=== PATIENT | male | born 1980 | race Asian ===

== ENCOUNTER 2024-03-31 18:46 | Inpatient (IN) | payer OTHER, SELFPAY ==
[2024-03-31] VITALS (43 sets, daily range): BP systolic 132–199; BP diastolic 93–150; BMI 29.8
--- NOTE | 2024-03-31 16:19 | ED.GENMED ---
Addendum entered and electronically signed by Ash Beckford PA-C 04/01/24 07:12:
Please note: Case consultation with neurology at 1745 via phone, Dr Brambila. Discussed presenting symptoms, new onset L visual field hemianopia. Questioned regarding need for CTA, neurology did not feel this was prudent as isolated visual field
deficit is likely a posterior circulation stroke, lack of other neuro symptoms would make MCA distribution LVO unlikely, NIH of 2 not an IAT candidate. Reasonable to proceed with CT head alone and purse MR angiography while in hospital.
Original Note:
History of Present Illness
<Ash Beckford PA-C - Last Filed: 03/31/24 18:29>
General
Chief Complaint: Breathing Problem
Time Seen by Provider: 03/31/24 16:10
History of Present Illness
History of Present Illness:
43-year-old male with history of uncontrolled hypertension presents to the emergency department for evaluation of shortness of breath ongoing for the past 5 or 6 days. States he first noticed feeling somewhat winded while bowling on Tuesday which
would be atypical for him. On Tuesday he felt as though he could not take a 'satisfying breath' and this is gradually worsened for the past several days. No chest pain, leg swelling or fevers. He is a smoker, denies ETOH. No hx of CAD or heart
arrhythmias
Review of Systems
<Ash Beckford PA-C - Last Filed: 03/31/24 18:29>
Review of Systems
Allergies reviewed?: Yes
All Other Systems: ROS reviewed and negative except as documented in HPI and ROS
Phy Exam
<LIZ Cao Last Filed: 03/31/24 18:29>
Physical Exam
Physical Exam:
GEN: Well appearing, NAD, WDWN
Eyes: PERRLA, EOMs intact, no scleral icterus
HENT: NCAT, oral mucosa moist
Lungs: CTAB, no wheezes, rales, rhonchi, normal chest wall excursion
Cardiac: Tachycardic and irregular, no murmur
Abdomen: S, NT, ND, NABS, no masses or hepatosplenomegaly
Neuro: AO x 3
MSK: No gross deformity or ecchymosis. No edema. No digital clubbing
Skin: No rashes, petechiae. Normal color, no pallor or jaundice.
Psych: Calm, cooperative, proper hygiene
Course
<Ash Beckford PA-C - Last Filed: 03/31/24 18:29>
Orders/Labs/Results
Orders:
Orders
03/31/24 15:46
Electrocardiogram (*1) Urgent
Reason for Study: Shortness of Breath
03/31/24 15:47
EKG- Treatment ONCE
03/31/24 16:18
CR Chest - 2 Views Urgent
Comment:
Reason For Exam: SOB
03/31/24 16:19
Diltiazem HCl [Cardizem] 20 mg IV NOW STA
03/31/24 16:30
Diltiazem 125 mg/125 ml Nss [Cardizem] 125 mg in 125 ml IV PER PROTOCOL
Initial dose in mg/hr, then titrate:: 5
Titrate to keep:: Heart rate 80-100 bpm
Titrate by mg/hr:: 5 mg/hr
Frequency of titrations (minutes):: 15
Maximum dose in mg/hr:: 15
03/31/24 16:51
CMP [Comprehensive Metabolic Panel] Urgent
Complete Blood Count/With Diff Urgent
Magnesium Urgent
03/31/24 17:16
NT-proBNP Urgent
Troponin I Urgent
03/31/24 17:27
Diltiazem HCl [Cardizem] 30 mg IV NOW STA
03/31/24 17:36
CT Head W/o Cont STROKE ALERT Urgent
Reason For Exam: acute onset L visual field deficit
03/31/24 18:02
Labetalol HCl [Trandate] 10 mg IV NOW STA
Tenecteplase [Tnkase] 25 mg Syringe [Syringe Non-Pump] 0 ml IV NOW
Provider explained risk/benefits to patient &/or caregiver?: Yes
Comment: HOLD FOR BP >180/100
Blood pressure: 160/124
03/31/24 18:19
Admit Patient As Directed
Co-Sign Provider:
Level of Care: Inpatient admission
Assign to:: ICU
Physician / Group: Zeferino Mcdaniel
Diagnosis: CVA s/p TNK
Reason for Hospitalization: CVA s/p TNK
Expected length of stay greater than two midnights?: Yes
ELOS- Estimated Length of Stay in days: 3
I certify the patient meets the requirements for IP care: Yes
03/31/24 18:20
Sequential Compression Device [Pneumatic Compression Sleeves] As Directed
Type: Knee high
DX Deep Vein Thrombosis Video Routine
Abnormal Lab Results
03/31/24 03/31/24
16:51 17:16
MPV 10.8 H fL
(7.4-10.4)
Absolute Neuts (auto) 6.6 H 10^3/uL
(1.4-6.5)
Absolute Monos (auto) 0.7 H 10^3/uL
(0.1-0.6)
Lymphocytes % 17.0 L %
(20.5-51.1)
Glucose 112 H mg/dl
(70-99)
Total Bilirubin 1.8 H mg/dl
(0.2-1.3)
ALT 63 H U/L
(0-50)
Troponin I 0.039 H* ng/ml
03/31/24 16:51
03/31/24 16:51
Vital Signs
Initial and Last Documented VS:
Initial Vital Signs
Temp Pulse Resp BP Pulse Ox
98.1 F 73 16 196/145 96
03/31/24 15:41 03/31/24 15:41 03/31/24 15:41 03/31/24 15:41 03/31/24 15:41
Last Documented Vital Signs
Temp Pulse Resp BP Pulse Ox
98.1 F 81 17 133/95 92
03/31/24 15:41 03/31/24 18:20 03/31/24 18:20 03/31/24 18:20 03/31/24 18:15
<Adi Mendoza, DO - Last Filed: 03/31/24 18:14>
Orders/Labs/Results
Orders:
Orders
03/31/24 15:46
Electrocardiogram (*1) Urgent
Reason for Study: Shortness of Breath
03/31/24 15:47
EKG- Treatment ONCE
03/31/24 16:18
CR Chest - 2 Views Urgent
Comment:
Reason For Exam: SOB
03/31/24 16:19
Diltiazem HCl [Cardizem] 20 mg IV NOW STA
03/31/24 16:30
Diltiazem 125 mg/125 ml Nss [Cardizem] 125 mg in 125 ml IV PER PROTOCOL
Initial dose in mg/hr, then titrate:: 5
Titrate to keep:: Heart rate 80-100 bpm
Titrate by mg/hr:: 5 mg/hr
Frequency of titrations (minutes):: 15
Maximum dose in mg/hr:: 15
03/31/24 16:51
CMP [Comprehensive Metabolic Panel] Urgent
Complete Blood Count/With Diff Urgent
Magnesium Urgent
03/31/24 17:16
NT-proBNP Urgent
Troponin I Urgent
03/31/24 17:27
Diltiazem HCl [Cardizem] 30 mg IV NOW STA
03/31/24 17:36
CT Head W/o Cont STROKE ALERT Urgent
Reason For Exam: acute onset L visual field deficit
03/31/24 18:02
Labetalol HCl [Trandate] 10 mg IV NOW STA
Tenecteplase [Tnkase] 25 mg Syringe [Syringe Non-Pump] 0 ml IV NOW
Provider explained risk/benefits to patient &/or caregiver?: Yes
Comment: HOLD FOR BP >180/100
Blood pressure: 160/124
03/31/24 18:19
Admit Patient As Directed
Co-Sign Provider:
Level of Care: Inpatient admission
Assign to:: ICU
Physician / Group: Zeferino Mcdaniel
Diagnosis: CVA s/p TNK
Reason for Hospitalization: CVA s/p TNK
Expected length of stay greater than two midnights?: Yes
ELOS- Estimated Length of Stay in days: 3
I certify the patient meets the requirements for IP care: Yes
03/31/24 18:20
Sequential Compression Device [Pneumatic Compression Sleeves] As Directed
Type: Knee high
DX Deep Vein Thrombosis Video Routine
Abnormal Lab Results
03/31/24 03/31/24
16:51 17:16
MPV 10.8 H fL
(7.4-10.4)
Absolute Neuts (auto) 6.6 H 10^3/uL
(1.4-6.5)
Absolute Monos (auto) 0.7 H 10^3/uL
(0.1-0.6)
Lymphocytes % 17.0 L %
(20.5-51.1)
Glucose 112 H mg/dl
(70-99)
Total Bilirubin 1.8 H mg/dl
(0.2-1.3)
ALT 63 H U/L
(0-50)
Troponin I 0.039 H* ng/ml
03/31/24 16:51
03/31/24 16:51
Vital Signs
Initial and Last Documented VS:
Initial Vital Signs
Temp Pulse Resp BP Pulse Ox
98.1 F 73 16 196/145 96
03/31/24 15:41 03/31/24 15:41 03/31/24 15:41 03/31/24 15:41 03/31/24 15:41
Last Documented Vital Signs
Temp Pulse Resp BP Pulse Ox
98.1 F 81 17 133/95 92
03/31/24 15:41 03/31/24 18:20 03/31/24 18:20 03/31/24 18:20 03/31/24 18:15
<Ash Beckford PA-C - Last Filed: 03/31/24 18:29>
MDM/Problems Addressed
MDM/Problems Addressed:
43-year-old male presenting with shortness of breath particular with exertion, found to be in new onset rapid atrial flutter. After initial lab evaluation and discussion of IV rate controlling medications, the patient began to report
lightheadedness as an abrupt onset of visual field deficit. This began at approximately 1715 assessment and discussion with attending physician Dr. Mendoza, the decision was made to proceed with a stroke alert. After discussion of symptoms with
neurology and review of initial head CT, I held a lengthy discussion with the patient and his family at the bedside regarding thrombolytic therapy. Although his NIH score surface would not meet criteria this is clearly a disabling deficit given his
complete loss of temporal visual field on the left and nasal visual field on the right. I discussed the patient the risk of thrombolytics including hemorrhaging and worsening neurologic function and the need for strict blood pressure control and
after discussion of risk and benefit the patient consents to proceed with thrombolytic therapy. After this discussion the patient remained moderately hypertensive and his diltiazem was maxed at 15 mg infusion and a dose of 10 mg of labetalol was
given, subsequent blood pressure readings x 2 were below 150/100 and at this time TNK was given. Patient being admitted to the intensive care unit medicine service for further ration and management. Endorses rapid atrial flutter his rate was
controlled on high-dose IV diltiazem, he does have EKG changes suggestive of LVH and a clinical presentation plus chest x-ray concerning for mild new onset congestive heart failure
<Ash Beckford PA-C - Last Filed: 03/31/24 18:29>
Comment
Comment:
Initial EKG independently interpreted by me shows a atrial fibrillation at a rate of [address]ressions and T wave inversions likely indicative of LVH
<Adi Mendoza DO - Last Filed: 03/31/24 18:14>
*Critical Care Note
Total Time (30-74mins, 75-104mins- exclusive of procedures): 35
comment:
Critical care statement: A total of 35 minutes of critical care time was provided for this patient. This includes management of unstable vital signs, evaluation of the patient at bedside, reviewing the patient's pertinent medical records, discussion
with consultants, review of old EKGs and review of pertinent medical records. This time with separate from time utilized to perform the aforementioned documented procedures
<Ash Beckford PA-C - Last Filed: 03/31/24 18:29>
Update Note
Update Note:
1715: Pt notes lightheadedness and 'blurry vision'. On further assessment, this appears to be a hemianopia particularly of the left lateral visual field
1738: Pt assessed by attending physician Dr Mendoza. Will proceed with stroke alert at this time
ED Attending Note
<Ash Beckford PA-C - Last Filed: 03/31/24 18:29>
-
Portions of this chart may have been created with voice recognition software.� Occasional wrong word or��sound alike� substitutions may have occurred due to the inherent limitations of voice recognition software.
<Adi Mendoza DO - Last Filed: 03/31/24 18:14>
ED Attending Note
Patient seen and examined by attending physician: Yes
ED Attending Note:
I have reviewed and agree with history and treatment plan by Lawrence Beckford. My exam revealed
Physical Exam
General: Hypertensive
Neck: supple. no meningeal signs. normal posterior pharynx
Heart: s1/s2 tachycardia, irregular rhythm, no murmur. equal radial
pulses.
HEENT: Pupils equal round reactive to light, EOMI
Lungs: no acute respiratory distress. clear bilaterally
Abdomen: normal bowel sounds. not tender. no CVAT
Neuro: alert and oriented. no focal neurological deficits cranial nerves II through XII intact, except left field hemianopsia
Skin: no rash
Psychiatric: well kept. interactive and cooperative
Extremities: no edema. no calf tenderness. negative homans. good distal pulses
43-year-old male with acute CVA, left visual field hemianopsia, began at 5 PM. TNK ordered. Admit to ICU.
Discharge Plan
Departure
Patient Disposition: Admit
Date of Disposition: 03/31/24
Time of Disposition: 18:13
Admit to: ICU
Presentation/result/management discussed w/ accepting MD/DO: Hospitalist
Patient with high blood pressure during this ER visit?: Yes
Condition: Fair
Discharge Problem:
Acute cerebrovascular accident (CVA), Atrial fibrillation with RVR
Prescriptions:
No Action
carvedilol 12.5 mg Tablet
12.5 mg PO BID
lisinopril 40 mg Tablet
40 mg PO DAILY
Referrals:
Eben Bradley DO [Family Provider] -
Interventions
Interventions:
*General Assessment Last Done: 03/31/24 17:57
*ED COVID-19 Vaccine History Last Done: 03/31/24 17:57
Discharge Date and Time
Print Language: KYRGYZ
[2024-03-31 17:08] LABS: % Basophils 0.2 % (0-2); % Eosinophils 0.5 % (0-6); % Immature Granulocytes 0.2 % (0-0.5); % Monocytes 7.3 % (1.7-9.3); % Neutrophils 74.8 % (42.2-75.2); Absolute Lymphocytes 1.5 10^3/uL (1.2-3.4); Absolute Monocytes 0.7 10^3/uL (0.1-0.6); Absolute Neutrophils 6.6 10^3/uL (1.4-6.5); Hematocrit 39.9 % (39.0-52.0); Mean Corp Hgb Conc. 35.1 g/dL (33.0-37.0); Mean Corpuscular Hgb 28.3 pg (27.0-31.0); Mean Corpuscular Volume 80.6 fL (80.0-94.0); Mean Platelet Volume 10.8 fL (7.4-10.4); Nucleated Red Blood Cells % 0 % (-); Platelet Count 225 10^3/uL (130-400); Red Blood Cell Count 4.95 10^6/uL (4.70-6.10); Red Cell Dist. Width 12.9 % (11.5-14.5); White Blood Cell Count 8.9 10^3/uL (4.8-10.8)
[2024-03-31] MEDS: CARDIZEM 20 MG IV (17:18)
[2024-03-31 17:23] LABS: ALT (SGPT) 63 U/L (0-50); AST (SGOT) 41 U/L (17-59); Albumin 4.2 g/dl (3.5-5.0); Alkaline Phosphatase 77 U/L (38-126); Blood Urea Nitrogen 20 mg/dl (9-20); Carbon Dioxide 22 mmol/L (22-30); Chloride 106 mmol/L (98-107); Glucose 112 mg/dl (70-99); Potassium 3.9 mmol/L (3.5-5.1); Sodium 139 mmol/L (135-145); Total Bilirubin 1.8 mg/dl (0.2-1.3); Total Protein 6.8 g/dl (6.3-8.2); eGFR > 60.00
[2024-03-31] MEDS: CARDIZEM 125 IV (17:30)
[2024-03-31] MEDS: CARDIZEM 30 MG IV (17:35)
--- NOTE | 2024-03-31 17:46 | PHANOTE ---
Med Rec Note:
Unable to confirm pt's medications with Dr Reid, pt states has not taken his medications in a long time, but took them today before coming in.
[2024-03-31 17:58] LABS: NT-proBNP 1580 pg/ml; Troponin I 0.039 ng/ml
[2024-03-31] MEDS: TRANDATE 10 MG IV ×2 (18:08→19:14)
[2024-03-31] MEDS: TNKASE 5 MG IV (18:19)
--- NOTE | 2024-03-31 18:58 | HPS.HSE ---
Family Physician
-
Family Physician: Eben Bradley, DO
Chief Complaint
-
sob
History of Present Illness
43 male history of uncontrolled hypertension presenting with shortness of breath that has been ongoing x 5 to 6 days. States worse when he was bowling and felt like his heart was racing. Now running as his shortness of breath continued to worsen.
While in the ED he was found to be in atrial fibrillation with RVR started on a Cardizem drip. While in the ED he then developed right lateral eye visual defects with blurring of the vision/complete loss of vision on the lateral side. CT brain
with no acute intracranial abnormalities. NIH is score reported to me of 2. At the time of my evaluation TNK was being provided. Blood pressure was in the 130s.
Medical History
Past Medical History
Past Medical History: Reports HTN
Past Surgical History: Reports None
Social History
Tobacco: Smoker (0.5 pack daily )
Alcohol: None
Drug: Marijuana
Family History
Family History: Diabetes
Allergies / Home Medications
Allergies reflects when Allergies were last updated in [facility].
Home Medications with original date entered in [facility]
nkda reported
Allergy/Medication List:
No known drug allergy
Review of Systems
-
A 12 point ROS was completed and negative except as noted: Yes
Physical Exam
Vital Signs
Vital Signs
Temp Pulse Resp BP Pulse Ox
98.1 F 82 16 139/104 92
03/31/24 15:41 03/31/24 18:35 03/31/24 18:35 03/31/24 18:35 03/31/24 18:15
Physical Exam
General: Well Developed and Well Nourished
HEENT: NormoCephalic, Anicteric, Moist mucous membranes, PERRLA, No Ptosis and Other (Right temporal upper/lower quadrant visual defects, wearing corrective lenses neck)
Respiratory: Clear
Cardiac: S1/S2 and Irregular Rhythm
Breast: Deferred by me
GI: Soft, Non Tender, Non Distended and Normal Bowel Sounds
Rectal: Deferred by Provider
Genito-urinary: Deferred by me
Musculoskeletal: No Clubbing and No Cyanosis
Skin: Warm
Neuro: Awake, Alert, Oriented, AO x 3, No Motor Deficits (5/5 motor strength in bilateral upper and lower extremities), Nonfocal/grossly intact, Cranial Nerves Intact and No Sensory Deficits
Laboratory Results
-
03/31/24 16:51
Laboratory Results
Total Bilirubin 1.8 mg/dl (0.2-1.3) H 03/31/24 16:51
AST 41 U/L (17-59) 03/31/24 16:51
ALT 63 U/L (0-50) H 03/31/24 16:51
Alkaline Phosphatase 77 U/L (38-126) 03/31/24 16:51
Troponin I 0.039 ng/ml H* 03/31/24 17:16
Glucose 112
Data Reviewed
-
Critical Care Time (in minutes): 82m
CT Scan: Report Reviewed by me and Discussed with Patient
Medical Tests (Nuc Med, Echo, EKG etc): Report Reviewed by me and Discussed with Patient
Lab Data: Labs Reviewed by me and Discussed with Family
Impression/Plan
-
Acute CVA s/p TNK
- Unfortunately no CT angio brain was completed prior to TNK administration for which I believe that this should have been as this could be cardioembolic
� Stroke protocol
� MRI brain and MRA head and neck
� 2D echocardiogram with bubble study
� Target normotensive
� Neurology consult
� A1c lipid profile ordered
� Start aspirin 24 hours post TNK administration
� Start high intensity statin
� Bedrest for the first 24-hour to prevent falls if standing may start fall precautions
� PT OT
Atrial fibrillation RVR confirmed on EKG
� Started on Cardizem drip by ED
� 2D echocardiogram assess valves and EF
� Consult cardiology
� Monitor on telemetry
Hypertension
-At home on lisinopril carvedilol. Hold. On Cardizem drip at this time
DVT prophylaxis s/p TNK, start SCDs
ICU
--- NOTE | 2024-03-31 19:30 | PTCARENOTE ---
pt adm to ICU from ER, aaox3, NIH 2 for L sided visual loss, see full documentation on work list. B/L IV intact- cardizem gtt infusing per work list. POC discussed, care ongoing.
[2024-03-31] MEDS: LIPITOR 40 MG PO (22:22)
[2024-04-01] VITALS (79 sets, daily range): BP systolic 82–185; BP diastolic 71–125; BMI 29.8
--- NOTE | 2024-04-01 01:20 | PTCARENOTE ---
pt c/o slight weakness in R hand, states it feels how it does 'when you fall asleep and wake up and it feels funny', denies numbness or tingling,
+ normal sensation; on assessment pt able to grasp hand but R thumb and pointer finger slightly weaker- other 3 fingers strong. no further changes in neuro check. discussed with Paulie, no action at this time--continue neuro checks as ordered.
--- NOTE | 2024-04-01 01:50 | PTCARENOTE ---
R thumb and R pointer finger continue to be noticeably weaker than rest of hand- noted as new symptom in neuro flowsheet, no drift in RUE noted, assessment otherwise remains the same.
--- NOTE | 2024-04-01 05:00 | PTCARENOTE ---
R hand strength improved t/o shift, L sided vision deficit resolved. no further changes.
[2024-04-01 06:10] LABS: INR 1.13; PT 14.5 Sec (11.4-14.6)
[2024-04-01 06:11] LABS: APTT 33.9 Sec (23.4-35.0)
[2024-04-01 06:24] LABS: Blood Urea Nitrogen 17 mg/dl (9-20); Calcium 8.8 mg/dl (8.4-10.2); Carbon Dioxide 22 mmol/L (22-30); Chloride 105 mmol/L (98-107); Estimated Creatinine Clearance > 125 ml/min; Glucose 96 mg/dl (70-99); HDL Cholesterol 38 mg/dl; LDL Cholesterol, Calculated 73 mg/dl; Potassium 3.6 mmol/L (3.5-5.1); Sodium 136 mmol/L (135-145); Total Cholesterol 132 mg/dl (50-199); Triglyceride 105 mg/dl (10-149); Very Low Density Lipoprotein 21 mg/dl (0-30); eGFR > 60.00
--- NOTE | 2024-04-01 07:06 | CON.INTV ---
Consultation
Consultation Request
Date/Time Consultation Requested: 03/31
Date/Time Consultation Performed: 04/01
Reason for Consultation: Critical care
Medical History
-
History of Present Illness:
History obtained from the patient, reviewing chart. Patient is a 43-year-old male whose history dates back to about 1 week ago when he developed increased shortness of breath, especially while bowling. He described palpitations. For this reason
he brought himself into [facility] where he was found to be afebrile, pulse 73, breathing at 16, blood pressure 196/145, 96% saturation. Patient was initially treated with IV diltiazem for atrial fibrillation with rapid ventricular response
and labetalol for hypertension. Patient developed new onset left visual field hemianopsia. NIH 2. Patient had CT of the head which was unremarkable, was administered TNK at approximately 1802. Patient admitted to ICU for acute stroke.
Presently, patient is feeling well. He has a mild posterior headache although he feels that this is from being hungry. Denies any vision changes, nausea, chest pain, shortness of breath at this time.
Patient also notes that he does not have insurance and he has been trying to get insurance
.
PMH: Hypertension, cardiomyopathy per radio survey worker in [facility], sleep apnea failed CPAP therapy
Past Medical History
Past Medical History: None
Past Surgical History: None (See above)
Social History
Tobacco: Smoker (43-[id number]-tced history, continues to smoke half a pack a day)
Alcohol: Occasional
Drug: None
Personal:
Living: With Family
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
Environmental Exposures: Born and raised in [place], has been in the states for 10 months
Family History
Family History: Other (2 daughters healthy. There is a family history of diabetes.)
Allergies / Home Medications
Allergies
Allergy/AdvReac Type Severity Reaction Status Date / Time
No Known Allergies Allergy Unverified 03/31/24 15:39
Home Medications
�Medication �Instructions �Recorded �Confirmed �Last Taken �Type
carvedilol 12.5 mg tablet 12.5 mg PO BID 03/31/24 03/31/24 History
lisinopril 40 mg tablet 40 mg PO DAILY 03/31/24 03/31/24 History
Review of Systems
-
All other systems: Negative unless noted
Vitals / Labs / Diagnostic Testing
Vital Signs
Temp Pulse Resp BP Pulse Ox
98.6 F 74 16 151/100 97
04/01/24 03:12 04/01/24 06:30 04/01/24 06:30 04/01/24 06:20 04/01/24 06:30
Lab Data
03/31/24 16:51
04/01/24 05:23
Laboratory Results
04/01/24
05:23
PT 14.5
INR 1.13
APTT 33.9
Diagnostic Testing:
Physical Exam
-
HEENT: Normocephalic and Anicteric
Cardiovascular: S1/S2, Regular Rhythm, Murmur (/6 systolic murmur) and Peripheral Edema (n)
Respiratory: Wheeze (n), Rales (n), Rhonchi (n) and Non-Labored Respirations
GI: Soft, Non Distended and Non Tender
Neurology: Awake, Alert, Oriented and No Motor Deficits (Cranial nerves nonfocal. )
Skin: Good Color
General: Comfortable
Assessment
-
43-year-old male with history of hypertension, cardiomyopathy (diagnosed by cardiology at [facility]), sleep apnea failed CPAP therapy, presents with subjective dyspnea, atrial fibrillation, found to have visual field defect status post TNK at
approximately 6 PM 03/31. We are asked to help from critical care standpoint
Acute stroke
Visual field defect in the ED
s/p TNK 6 PM on 03/31
Atrial fibrillation with rapid ventricular response
Cardizem drip initiated
History of cardiomyopathy
Diagnosed by [id number] at [facility]
Not on antihypertensive therapy
History of sleep apnea, failed CPAP therapy
2013
Hypertension
[id number]-levl history of smoking, ongoing
Family history of diabetes
Plan/recommendations
At this time, patient is critically ill but stable. Visual field defect has resolved.
Patient is without any complaints at this time
He describes subjective dyspnea for 1 week, likely secondary to atrial fibrillation
Cardioembolic cause for his visual field defect is likely
He does have a mild posterior headache but this is minimal, states he gets this when he is hungry
Moving forward
Cranial nerves intact at this time, neurological exam nonfocal
Await follow-up imaging per neurology
Tachycardia has improved. Now in sinus rhythm
Nonspecific T wave changes noted
Echocardiogram pending, cardiology has been consulted
Patient sees his [id number] Panchito, who is a radio survey worker (unofficially)
He was told he had a thickened heart wall
Patient did require Cardene intermittently
Labetalol as needed also noted
Follow blood pressures, maintain systolic 140-1 80
Antiplatelet therapy pending repeat imaging
Discussed at length risks and ramifications of untreated sleep disordered breathing
Given patient comorbidities, he should revisit this
Head of bed elevated for now
Consider revisiting HST and CPAP therapy. This can be done as an outpatient
Blood glucose normal. A1c pending
Also reviewed at length importance of tobacco cessation. His also smokes. He is committed to stopping smoking. Reviewed behavioral changes.
Reviewed with patient, at bedside
Reviewed with critical care nursing
TCCT 31 min
--- NOTE | 2024-04-01 08:00 | PTCARENOTE ---
the pt was received from previous retail shift manager RN, the pt is resting in stretcher in the lowest position, side rails up x2, call loza within reach, HOB elevated, the pts is currently at the pts bedside, no s/s of distress currently, the pt is
AAO, able to answer questions appropriately and able to move all extremities, pupils equal 3 and brisk, NIH and neurological checks being completed post TNK per protocol, deficits have resolved, the pt is currently still on bed rest post TNK, the pt
is currently in NSR in the 70's, palpable pulses, no edema present, no c/o chest pain, the pt is currently on RA Sp02 97%, CTA, no cough, no c/o SOB, the pt is on 2L NC while asleep, the pt is currently on a cholesterol lowering diet, no c/o N/V/D,
bowel sounds present in all four quadrants, the pt is voiding in urinal, the pt stated to this RN, 'I feel like i might have to poop at some point today', this RN educated the pt on bed rest orders for the pt at this time and the pt is receptive to
this, the pt has no skin issues, PIV's have positive blood return and are flushed and patent, trending Troponins, bleeding precautions in place, will continue to monitor the pt closely
--- NOTE | 2024-04-01 08:58 | CON.NEURO ---
Neuro Assessment/Plan
Assessment
IMPRESSIONS/RECOMMENDATIONS:
Abrupt change in vision
Most likely due to acute ischemic stroke which in turn is secondary to atrial fibrillation with onset of symptoms at approximately 1750 hrs.
Plan
Patient received tenecteplase appropriately to remediate likely clot producing symptoms
Check MRI of brain as planned to discern severity of damage
Check MRA head and neck for completeness
Provide anticoagulation beginning 24 hours after tenecteplase provision as prescribed by cardiology
Not clear patient would benefit from use of atorvastatin
Will continue to follow patient. Thank you.
Consultation
Order
Date of Consultation: 04/01/24
Requesting Provider: Hospitalists
Reason for Consult: Visual loss
Subjective/Objective
Subjective Data
Date of Service: April 01, 2024
Right-Handed
Patient presented to this hospital's emergency department with acute onset shortness of breath which had been ongoing for the prior 5 days according to medical records. At approximately 1730 hrs., the patient began experiencing sudden onset of loss
of vision on left-side after presentation. Loss has subsequently improved by 90%. No associated symptoms except for posterior pressure. No known modifying factors. No prior events.
Patient received Tenecteplase (TNK). The patient was subsequently transferred to the intensive care unit for further evaluation and treatment.
Objective Data
Vital Signs
Temp Pulse Resp BP Pulse Ox
36.4 C 74 16 151/100 97
04/01/24 08:03 04/01/24 06:30 04/01/24 06:30 04/01/24 06:20 04/01/24 06:30
Lab Results
03/31/24 16:51
04/01/24 05:23
PT 14.5 Sec (11.4-14.6) 04/01/24 05:23
INR 1.13 04/01/24 05:23
APTT 33.9 Sec (23.4-35.0) 04/01/24 05:23
Sodium 136 mmol/L (135-145) 04/01/24 05:23
Potassium 3.6 mmol/L (3.5-5.1) 04/01/24 05:23
BUN 17 mg/dl (9-20) 04/01/24 05:23
Glucose 96 mg/dl (70-99) 04/01/24 05:23
Calcium 8.8 mg/dl (8.4-10.2) 04/01/24 05:23
Bup-N-Rrctkrdjjbc Pept 1580 pg/ml 03/31/24 17:16
LDL Cholesterol, Calc 73 mg/dl 04/01/24 05:23
Patient Allergies
No Known Allergies Allergy (Unverified 03/31/24 15:39)
CVA Assessment
Onset of Stroke Symptoms
Onset of symptoms known: Yes
Date of onset of symptoms: 03/31/24
Time of onset of symptoms: 17:30
Time pt last seen normal is known: Yes
Date last time pt seen normal: 03/31/24
Time last time pt seen normal: 17:30
NIH Stroke Score
Level of Consciousness: 0 - Alert
LOC Questions: 0-Answers both correctly
LOC Commands: 0-Performs both correctly
Best Horizontal Gaze: 0-Normal
Visual Butler: 0=Normal, no visual loss
Facial Palsy: 0=Normal, symmetrical
Motor - Right Arm: 0=No drift 10 seconds
Motor - Left Arm: 0=No drift 10 seconds
Motor - Right Le-No drift 5 seconds
Motor - Left Le-No drift 5 seconds
Limb Ataxia: 0-Absent
Sensation: 0-Normal
Best Language: 0-No aphasia
Dysarthria: 0-Normal
Extinction and Inattention: 0-No abnormality
Total Score:: 0
Tenecteplase Contraindications
Inclusion and Exclusion criteria reviewed: Yes
IAT Contraindications: NIHSS < 6
Review of Systems
-
History Source: Patient and Family
All other systems: Reviewed and negative
EENT: Decreased Vision; Negative Swallowing Difficulty
Respiratory: Negative Trouble Breathing
Cardiac: Negative Chest Pain
Abdomen/GI: Negative Incontinence of Stool
Genitourinary: Negative Incontinence
Musculoskeletal: Negative Back Pain or Neck Pain
Neuro: Headache (posterior pressure at time of symptom); Negative Dizzy
Physical Exam
-
General: No Apparent Distress and Appears Stated Age
Eyes: OU Absent Papilledema, Round OU, [place] Conjunctivae and No Ptosis
HEENT: Anicteric and Moist Mucous Membranes
Neck: Full Range of Motion
Respiratory: No Dyspnea
Cardiac: No JVD
GI: Non-distended
Skin: Unremarkable
Extremities: No Clubbing, No Cyanosis and No Edema
Psych: Intact Judgement/Insight
Extended Neurological Exam
Mood & Affect: Mood Unremarkable and Affect Unremarkable
Attention Span & Concentration: Awake, Alert, Interactive and No Difficulty with 2 Step Request
Memory: Unremarkable
Tremor: Hand Tremor Absent and Head Tremor Absent
Speech: Quality Unremarkable and Quantity Unremarkable
Cranial Nerve II: Left Eye: Pupillary Reactivity Unremarkable, Pupillary Size Unremarkable and Visual Butler Intact
Cranial Nerve II: Right Eye: Pupillary Reactivity Unremarkable, Pupillary Size Unremarkable and Visual Butler Intact
Cranial Nerves III, IV, : Extraocular Movement: Extraocular Movement Full in all Directions
Cranial Nerve VII: Facial Symmetry: Normal Facial Symmetry
Cranial Nerve VIII: Hearing: Unremarkable Hearing to Normal Conversational Volume
Cranial Nerves IX, X: Palate Movement: Palate Elevation Symmetric
Cranial Nerve XI: Shoulder Shrug: Unremarkable
Cranial Nerve XII: Tongue Protusion: Midline
Muscle Strength, Overall: Full Throughout
Muscle Bulk & Tone: Bulk Unremarkable and Tone Unremarkable
Pronator Drift: No Drift in Upper Extremities
Deep Tendon Reflexes: Unremarkable Throughout
Touch Sensation: Unremarkable
Coordination: Tpkpon-uany-igeytz Testing Unremarkable
Babinski Sign: Absent Bilaterally
Data Reviewed
-
CT Head: Report Reviewed
MRI Head: Pending
MRA Head: Pending
MRA Neck: Pending
Labs: Report Reviewed
Reviewed with: Physician and Patient
Old Records: Summarized
Medications
-
Active Medications
Generic Name Dose Route Start Last Admin
Trade Name Freq PRN Reason Stop Dose Admin
Acetaminophen 650 mg 03/31/24 18:38
Acetaminophen 325 Mg Tablet PO 04/28/24 18:37
Q4HPRN PRN
KILPATRICK, mild pain, or temp >100.4F
Atorvastatin Calcium 40 mg 04/01/24 18:00
Atorvastatin (Lipitor) 40 Mg Tablet PO 04/29/24 17:59
QPM FRANCISCO J
Diltiazem HCl 125 mg in 125 mls @ 0 mls/hr 03/31/24 16:30 03/31/24 17:30
Cardizem IV 125 mls
PER PROTOCOL FRANCISCO J Administration
Protocol
Per Protocol
Nicardipine/Sodium Chloride 40 mg in 200 mls @ 0 mls/hr 03/31/24 20:30
Cardene IV
PER PROTOCOL FRANCISCO J
Protocol
Per Protocol
Sodium Chloride 0 flush 03/31/24 23:00
Sodium Chloride 0.9% (Flush) Syringe IV 04/28/24 22:59
PER PROTOCOL FRANCISCO J
Home Medications
�Medication �Instructions �Recorded
carvedilol 12.5 mg tablet 12.5 mg PO BID Blood Pressure 03/31/24
lisinopril 40 mg tablet 40 mg PO DAILY Blood Pressure 03/31/24
Past History
Past History
ED Past Medical History: HTN
ED Past Surgical History: None
Social History
Tobacco: Smoker
Alcohol: None
Drug: Marijuana
Personal:
Living: with family
Family History
Family History: Other (Reviewed and noncontributory)
[2024-04-01 09:33] LABS: Glycohemoglobin (HgbA1c) 5.6 % (4.0-5.6)
[2024-04-01 09:38] LABS: NT-proBNP 766 pg/ml
--- NOTE | 2024-04-01 09:52 | CON.CAR ---
Addendum entered and electronically signed by Tian Garza MD 04/01/24 14:34:
I saw and examined the patient.
The WOOL PULLER's note was reviewed and I agree with the note.
Comment:
Imp/Suggestion
Presented with LEA, likely acute decompensated HFrEF, perhaps first time with HF symptoms
- Meds for HFrEF should help his severe untreated HTN
- HF education
Newly found PAF
- Control or HTN, HF
- Add Eliquis when OK with neurology
- In future can consider more than just a BB for his AFib, ablation will be future option
New TIA vs aborted CVA, likely cardioembolic
Chronic cardiomyopathy, his cousin (a hot air furnace installer repairer) performed an echo and Dx cardiomyopathy 'years ago'
- Echo here confirms what a cardiomyopathy
Elevated troponin
- Likely a nonischemic myocardial injury form rapid AF, HF, and acute neurologic event, cannot rule out type II MO from AFib embolus or from rapid AFib
- I prefer an elective ischemic evaluation as an outpatient given his acute neurologic event
- Given troponin I favor statin
HTN, severe, chronic, untreated
Medical non-adherence
Social determinant of health: he lacks insurance
Original Note:
Consultation
Consultation Request
Date/Time Consultation Requested: 03/31/2024, 18:38 PM
Date/Time Consultation Performed: 04/01/2024, 7:45 AM
Requesting Provider: Zeferino Warren
Performing Provider: Chayito Lares for Tian Valdez
Reason for Consultation: Severe HTN, Afib
Medical History
-
Chief Complaint: Shortness of breath and fatigue
History of Present Illness:
43-year-old male with significant PMHx for hypertension presents to the hospital with sudden onset SOB that is gradually worsening for 6 days. Patient reports that his symptoms initially started on Tuesday when he went for balling with a friend for
3 hours however he felt extremely fatigued and could not push through Bowling beyond 1 and half hours. He was so tired, his friend has to drop him home. After going home he noticed mild shortness of breath and sweating that gradually worsened with
strenuous activity. He states it is a sensation of not being able to take full breaths but is not associated with any sort of chest pain or pressure, jaw pain, upper back pain, left or right arm pain. He gradually noticed that he could not swim
with his kids and his sensation of fatigue and not being able to take full breaths were sent from about three fourth to just 20% the day before he came to emergency room. On the day of presentation he felt that he could not breathe more than 10%
which prompted ER visit. He admits to have difficulty sleeping and had to find a comfortable position to sleep but did not notice any PND. Denies having palpitations, chest pain, nausea or vomitings, dizziness, lightheadedness, isolated weakness,
syncopal or near syncopal episodes. He never had similar episodes in the past.
Upon arrival to the emergency room patient was found to have A-fib with RVR and was initiated Cardizem drip. While in the ED he reported to have right lateral thigh visual defects with blurring of vision and complete loss of vision on the lateral
side which resolved in the a.m. today. NIH score 2 stroke protocol initiated patient received TNK therapy and CT brain revealed no acute intracranial abnormalities.
Of note he was diagnosed with hypertension in 2008, was prescribed lisinopril and was also prescribed carvedilol by his primary care but he was never compliant with medications. He also reports to have had workup and established diagnosis of
hypertrophic cardiomyopathy about 2 years ago by his cousin who is a hot air furnace installer repairer.
Past Medical History
Past Medical History: Other (Hypertension, marijuana use.)
Past Surgical History: Other (None)
Social History
Tobacco: Smoker (0.5 pack/day for 15 years)
Alcohol: None
Drug: Marijuana (Smokes marijuana, once or twice a day.)
Personal:
Living: With Family
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
Family History
Family History: Diabetes (Strong history of diabetes in paternal and maternal family.)
Allergies / Home Medications
Allergy/AdvReac Type Severity Reaction Status Date / Time
No Known Allergies Allergy Unverified 03/31/24 15:39
�Medication �Instructions �Recorded �Confirmed �Type
carvedilol 12.5 mg tablet 12.5 mg PO BID Blood Pressure 03/31/24 History
lisinopril 40 mg tablet 40 mg PO DAILY Blood Pressure 03/31/24 History
Review of Systems
-
History Source: Patient
Constitutional: Fatigue
EENT: No Symptoms
Respiratory: Trouble Breathing
Cardiac: Diaphoresis
Abdomen/GI: No Symptoms
: No Symptoms
Musculoskeletal: No Symptoms
Neurological: No Symptoms
Endocrine: No Symptoms
Hematologic/Lymphatic: No Symptoms
Physical Exam
Vital Signs
Temp Pulse Resp BP Pulse Ox
97.6 F 85 19 147/95 97
04/01/24 08:03 04/01/24 09:30 04/01/24 09:30 04/01/24 09:00 04/01/24 09:30
Lab Results
03/31/24 16:51
04/01/24 05:23
Troponin I 1.720 ng/ml H* D 04/01/24 05:23
Fxa-O-Uimsawxcshx Pept 766 pg/ml 04/01/24 05:23
Physical Exam
General: Comfortable
HEENT: Moist Mucous Membranes
Respiratory: Clear; Negative Wheezes, Crackles or Rhonchi
Cardiac: S1/S2, Regular Rhythm and Other (S4 present); Negative Murmur, Rub, JVD or HJR
GI: Soft, Non Tender, Non Distended and Normal Bowel Sounds
Musculoskeletal: No Edema
Neuro: AO x 3
Impression / Plan
-
Background-
Mr. Rehman is a 43-year-old male with PMHx significant for hypertension, noncompliant with medications presents to the emergency room with shortness of breath, diaphoresis and fatigue x 6 days. Was found to have A-fib with RVR, and a subsequent TIA in
the emergency room. Cardiology consulted for A-fib and cardiomegaly on chest x-ray.
Impression -
Dyspnea -
- Secondary to HFrEF-EF at 40% with global hypokinesis and grade 3 diastolic dysfunction.
- History of established diagnosis of hypertrophic cardiomyopathy, not on any medications.
- Suspect hypertensive cardiomyopathy. Wonder if there is some ischemic component to it as well.
- Medical management with beta-blockers, and ARB's.
Acute onset TIA-CVA
- Suspect secondary to A-fib, resolution of symptoms in 4 to 5 hours with tenecteplase.
- Will resume Eliquis when safe to do so from neurological standpoint.
A-fib with RVR-
- Rhythm: switch to oral diltiazem. Currently in NSR
- [id number] score-4, recommend Eliquis 5 mg twice daily.
- Recommend rate control with carvedilol.
Elevated troponins-
- Can be secondary to A-fib and HCOM, type II demand ischemia.
- Questionable NSTEMI, ST segment elevations in V2 V3 with T wave inversions from V3 to V6
-May need left heart catheterization electively.
- Repeat serial EKGs,
Severe systemic hypertension-
Home medications lisinopril and carvedilol, noncompliant.
Recommend optimal medical management and tight blood pressure control.
Subjective -
feels well today.
Data reviewed -
Telemetry-average heart rate-80s, NSR
EKG-03/31/2024-A-fib with RVR, early repolarization changes in ST segments
EKG-04/01/2024-NSR, left atrial enlargement, LVH, ST segment elevation in V2, V3, T wave inversions in V3-V6
Troponins-0.4, 1.7 1 PM troponins pending
proBNP 04/01/2024-720.
CT head-no acute intracranial abnormalities, MRI pending.
Chest e-mpd-lqxydbccptck with mild pulmonary vascular congestion.
2D echo-04/01/2024-LVEF 40%, HFrEF, global hypokinesis, grade 3 diastolic dysfunction, PASP-52 mmHg.
Data Reviewed
-
EKG: Tracing Personally Visualized and interpreted
Radiology: Image Personally Visualized and interpreted
CT Scan: Image Personally Visualized and interpreted
Medical Tests (Nuc Med, Echo etc): Image Personally Visualized and interpreted
Labs: Labs Reviewed by me
--- NOTE | 2024-04-01 10:40 | PTOTSP ---
Speech Language Pathology
Pt seen for speech/language evaluation. Deferred swallow evaluation as pt passed RN dysphagia screen and reported no difficulty with meals. No dysarthria or dysphonia noted. Language evaluated via the Quick Aphasia Battery (QAB), form 1. Pt with
an overall score of 10.00 (WNL). No aphasia noted.
Further ELEVATOR EXAMINER services not indicated. Please reconsult as warranted.
--- NOTE | 2024-04-01 10:55 | PTCARENOTE ---
the pt pressed the call loza and this RN entered the pts room, the pt stated to this RN, 'May i please get up i feel fine, i don't feel weak, i just really have to poop and i don't think that i can do it in the [facility] i have never done that before and
it's embarrasing', this RN tiger texted Dr. Brambila and asked for Dr. Amezquita permission to get the pt OOB to the bedside commode so that the pt could have a bowel movement, this RN assisted the pt out of bed with no issues, no c/o dizziness/light
headedness, no s/s of bleeding present, pt is sitting on commode with this RN at the pts bedside
--- NOTE | 2024-04-01 11:05 | PTCARENOTE ---
the pt finished having a bowel movement and this RN assisted the pt from the commode to the bed with no issues, the pt is resting in stretcher in the lowest position, side rails up x2, call loza within reach, HOB elevated, no s/s of distress, there
were no s/s of blood in the pts stool, VS WNL, the pts is currently still at the pts bedside, will continue to monitor the pt closely
[2024-04-01] MEDS: COREG 12.5 MG PO ×2 (11:38→19:39)
[2024-04-01] MEDS: ALDACTONE 25 MG PO (11:38)
[2024-04-01] MEDS: LASIX 20 MG PO (11:38)
[2024-04-01] MEDS: CARDENE 200 IV (11:49)
--- NOTE | 2024-04-01 11:53 | PTCARENOTE ---
this RN noted that the pts blood pressure was 161/125, this RN notified the provider and started Cardene at 2.5mg/hour, will continue to monitor the pt closely
--- NOTE | 2024-04-01 11:59 | CM ---
CM following re: discharge planning.
Reviewed pt's chart, met with t and pt's spouse at bedside.
Pt is a 43 year old male, admitted with primary dx of SOB.
Pt reports he was born in [place], immigrated to [facility] [facility] with family at the age of 10 months, resides with spouse and 4 children in a 2SH, 2 steps to enter. 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
PCP: Eben Bradley
Pharmacy: [facility] [place]
D/C plan: home with anticipated no needs. Spouse to transport at discharge.
CM will follow with discharge plan updates as hospitalization progresses
--- NOTE | 2024-04-01 12:19 | PTCARENOTE ---
this RN notified the provider of the pts continuously elevated Troponin at 2.130, will continue to monitor the pt closely
[2024-04-01] MEDS: ENTRESTO 24 MG/26 MG 1 TAB PO ×2 (12:24→19:40)
--- NOTE | 2024-04-01 13:10 | PTCARENOTE ---
the pt is resting in stretcher in the lowest position, side rails up x2, call loza within reach, HOB elevated, no s/s of distress, no c/o chest pain, no c/o SOB, VS WNL, most recent blood pressure is 139/92 (104), Cardene gtt currently running at
2.5mg/hour, the pts is currently still at the pts bedside, no s/s of bleeding noted, no complaints offered at this time, no change from previous assessment, will continue to monitor the pt closely
--- NOTE | 2024-04-01 13:51 | W.PN.HOSP.TC ---
Addendum entered and electronically signed by Zeferino Mcdaniel MD 04/01/24 14:04:
subjective
seen and examined
no new complaints
no acute ovenright events
visual defect resolved
Original Note:
Today's Communication/Plan
-
gets mri's
follow up neuro recs
follow up cards recs
Assessment / Plan
Assessment / Plan
NAD, comfortable
Scleral anicteric, EOMI, visual perception full
No JVD, moist mucous membranes
CTA bilateral
S1-S2, regular rate rhythm
No peripheral pitting edema
5/5 motor strength in bilateral upper lower extremities, CN II to XII
Acute CVA s/p (6pm on 03/31) TNK
- Unfortunately no CT angio brain was completed prior to TNK administration for which I believe that this should have been as this could be cardioembolic
� Stroke protocol
� MRI brain and MRA head and neck
� 2D echocardiogram completed, unfortunately not with bubble
� Target normotensive
� Neurology consult
� A1c lipid profile ordered
� Start aspirin 24 hours post TNK administration
� Start high intensity statin
� Bedrest for the first 24-hour to prevent falls if standing may start fall precautions
� PT OT
Atrial fibrillation RVR confirmed on EKG
� Started on Cardizem drip transition to PO
- Once outside of 24hour tnk window start Eliquis for nonvalvular afib
� Monitor on telemetry
Elevated troponin
- Likely demand ischemia in the setting of Afib and CVA
- Trend till peak
- Cards consult
- S/p TNK
New HFrEF, euvolemic, likely tachy induced as global hypokinesis
-Cards start gdmt, if bp tolerates then consider starting [id number]
-Will need outpt follow up
-HF diet education
Tobacco use
-Disccuses cessation
-Order NRT (patch)
Hypertension
-At home on lisinopril carvedilol. Hold. On Cardizem drip at this time
DVT prophylaxis s/p TNK, start SCDs
ICU
Anticipated Discharge: 24 - 48 hours
Subjective/Interval History
-
Date of Service: April 01, 2024
Objective Data
-
Labs:
Laboratory Results
04/01/24
05:23
PT 14.5
INR 1.13
APTT 33.9
Sodium 136
Potassium 3.6
Chloride 105
Carbon Dioxide 22
BUN 17
Creatinine 0.7
Glucose 96
Calcium 8.8
Vital Signs:
Vital Signs
Temp Pulse Resp BP Pulse Ox
97.6 F 75 15 144/87 95
04/01/24 12:38 04/01/24 13:20 04/01/24 13:20 04/01/24 13:20 04/01/24 12:38
I&O
03/31/24 04/01/24 04/02/24
06:59 06:59 06:59
Intake Total 570.0 / 620.0 315 / 315
Output Total 925 / 925
Balance 570.0 / 495.0 -610 / -610
--- NOTE | 2024-04-01 14:22 | PTCARENOTE ---
MRI called and stated that they are leaving in 10 minutes and that the pt will not be scanned today unless the medication aid respiratory support technician is called, this RN will notify Dr. Brambila
--- NOTE | 2024-04-01 14:25 | PTCARENOTE ---
Dr. Brambila is okay with the pt getting MRI done tomorrow
--- NOTE | 2024-04-01 14:44 | PTCARENOTE ---
this RN stopped the Cardene gtt, provider notified
[2024-04-01] MEDS: CARDIZEM 30 MG PO ×3 (15:30→22:05)
--- NOTE | 2024-04-01 16:45 | PTCARENOTE ---
the pt is resting in stretcher in the lowest position, side rails up x2, call loza within reach, HOB elevated, no s/s of distress, no s/s of bleeding, no c/o pain, no c/o SOB, VS WNL, the pts mother and are currently still at the pts bedside,
no change from previous assessment, post TNK assessments being performed per protocol, will continue to monitor the pt closely
--- NOTE | 2024-04-01 18:57 | PTCARENOTE ---
this RN angelic texted Dr. Brambila and asked the provider if he wanted a s/p TNK [address] scan, per the provider he does not want a CT scan performed tonight he just wants the MRI performed tomorrow, this information was relayed to caustic cresylate shift superintendent RUBBER TRIMMER Yohannes
--- NOTE | 2024-04-01 20:00 | PTCARENOTE ---
Rec'd pt sitting in bed, family at bedside, when NIH performed w/ off going shift- pt had slightly blurred left peripheral vision- NIH score-1- B [place], STREET LIGHT SERVICER HELPER aware; SR w/ PAC's, to keep BP < 180/105, + pulses, no edema, skin
warm/dry, RA, lungs clear, sat 96, + bowel sounds, no bm, abd obese, soft, no n/v, pedro diet, voiding without difficulty
--- NOTE | 2024-04-01 22:00 | PTCARENOTE ---
Bernadine Callahan NP aware of bp- 'ok to give Cardizem at this time'
--- NOTE | 2024-04-01 22:21 | PTCARENOTE ---
assisted oob to bathroom- pedro well, back to bed
[2024-04-02] VITALS (19 sets, daily range): BP systolic 112–164; BP diastolic 65–118; PULSE 72–76; O2SAT 95–97; BMI 29.2
--- NOTE | 2024-04-02 00:23 | PTCARENOTE ---
sys reviewed, no changes in neuro assessment
--- NOTE | 2024-04-02 04:13 | PTCARENOTE ---
sys reviewed, no changes
[2024-04-02 04:18] LABS: Hematocrit 42.5 % (39.0-52.0); Hemoglobin 14.6 g/dL (13.0-18.0); Mean Corp Hgb Conc. 34.4 g/dL (33.0-37.0); Mean Corpuscular Hgb 27.9 pg (27.0-31.0); Mean Corpuscular Volume 81.3 fL (80.0-94.0); Mean Platelet Volume 10.5 fL (7.4-10.4); Platelet Count 223 10^3/uL (130-400); Red Blood Cell Count 5.23 10^6/uL (4.70-6.10); Red Cell Dist. Width 13.1 % (11.5-14.5); White Blood Cell Count 8.9 10^3/uL (4.8-10.8)
[2024-04-02 04:39] LABS: Blood Urea Nitrogen 20 mg/dl (9-20); Calcium 8.9 mg/dl (8.4-10.2); Carbon Dioxide 26 mmol/L (22-30); Chloride 106 mmol/L (98-107); Estimated Creatinine Clearance > 125 ml/min; Glucose 113 mg/dl (70-99); Magnesium 2.1 mg/dl (1.6-2.3); Potassium 3.9 mmol/L (3.5-5.1); Sodium 138 mmol/L (135-145); eGFR > 60.00
--- NOTE | 2024-04-02 07:37 | W.PN.INTV ---
Today's Communication / Plan
Recommendations
Continue management per neurology
Antiplatelet therapy as indicated, await follow-up imaging
Abnormal echocardiogram, elevated troponins noted
Blood pressure treatment and anticoagulation per cardiology
Patient transferred out of ICU. We will sign off. Please call with questions
Assessment
-
43-year-old male with history of hypertension, cardiomyopathy (diagnosed by cardiology at [facility]), sleep apnea failed CPAP therapy, presents with subjective dyspnea, atrial fibrillation, found to have visual field defect status post TNK at
approximately 6 PM 03/31. We are asked to help from critical care standpoint
Acute stroke
Visual field defect in the ED
s/p TNK 6 PM on 03/31
Atrial fibrillation with rapid ventricular response
Cardizem drip initiated
History of cardiomyopathy
Diagnosed by [id number] at [facility]
Not on antihypertensive therapy
Echocardiogram 04/01/2024 with EF 40%, severe concentric LVH, moderate MR, PA pressure 52
History of sleep apnea, failed CPAP therapy
2013
Hypertension
[id number] history of smoking, ongoing
Family history of diabetes
Plan/recommendations
At this time, patient is feeling well without complaints
Positive troponins noted
Neurological exam nonfocal
He describes subjective dyspnea for 1 week, likely secondary to atrial fibrillation
Cardioembolic cause for his visual field defect is likely
He does have a mild posterior headache but this is minimal, states he gets this when he is hungry
Moving forward
Cranial nerves intact at this time, neurological exam nonfocal
Await follow-up imaging per neurology
Tachycardia has improved. Now in sinus rhythm
Nonspecific T wave changes noted
Echocardiogram EF 40%, moderate to severe concentric LVH, moderate MR, PASP 52
Patient sees his [id number]-mtg Panchito, who is a mid wife (unofficially)
Cardiology currently following
He was told he had a thickened heart wall
Follow blood pressures, maintain systolic 140-180
Antiplatelet therapy pending repeat imaging
Discussed at length risks and ramifications of untreated sleep disordered breathing
Given patient comorbidities, he should revisit this
Head of bed elevated for now
Consider revisiting HST and CPAP therapy. This can be done as an outpatient
Blood glucose normal. A1c pending
Also reviewed at length importance of tobacco cessation. His also smokes. He is committed to stopping smoking. Reviewed behavioral changes.
Reviewed with patient, at bedside
Reviewed with critical care nursing
For transfer out of ICU. We will sign off. Please call with questions
Subjective Dataa
Subjective Data
Date of Service:
Date of Service: April 02, 2024
Subjective:
Patient is feeling well. Denies headaches, chest pain, shortness of breath, cough, nausea. at bedside
Objective Data
Data Reviewed
Vital Signs / I&O / Oxygen:
Vital Signs
Temp Pulse Resp BP Pulse Ox
98 F 58 15 134/80 93
04/02/24 07:09 04/02/24 06:00 04/02/24 06:00 04/02/24 06:00 04/02/24 05:30
Intake and Output
04/01/24 04/02/24 04/03/24
06:59 06:59 06:59
Intake Total 570.0 / 620.0 595 / 595
Output Total 1560 / 1560
Balance 570.0 / 495.0 -965 / -965
SaO2 93
Physical Exam
General: Comfortable
HEENT: Normocephalic and Anicteric
Cardiovascular: S1-S2, Regular Rhythm, Murmur (n), Rub (n), Peripheral Edema (n) and Calf Tenderness (n)
Respiratory: Wheeze (n), Crackles (n), Rhonchi (n) and Non-Labored Respirations
GI: Soft, Non Distended and Non Tender
Neurology: AO x 3 and No Motor Deficits
Skin: Cyanosis (n), Jaundice (n) and Rash (n)
Labs/Micro/Reports
Lab Data
04/02/24 03:59
04/02/24 03:59
[2024-04-02] MEDS: ENTRESTO 24 MG/26 MG 1 TAB PO (07:45)
[2024-04-02] MEDS: LASIX 20 MG PO (07:45)
[2024-04-02] MEDS: COREG 12.5 MG PO (07:45)
[2024-04-02] MEDS: ALDACTONE 25 MG PO (07:45)
[2024-04-02] MEDS: CARDIZEM 30 MG PO (07:45)
--- NOTE | 2024-04-02 08:00 | PTCARENOTE ---
Received pt. @ change of shift. [facility] completed w off-going RN, scored as 1 for blurry vision on L peripheral- see neuro flow sheet. AAOx3, denies pain. SR on monitor. SpO2 97% on RA. Cont b/b. Stand by assisted into BR, performed AM hygiene care
by self. Stand by assisted into chair for breakfast, gait steady. and pt. updated on plan of care. Instructed on how to report care concerns and call loza placed in reach.
--- NOTE | 2024-04-02 08:49 | W.PN.CD ---
Addendum entered and electronically signed by Tian Garza MD 04/02/24 11:32:
I saw and examined the patient.
The resident's note was reviewed and I agree with the note.
Comment:
1. BP coming under control. HF/HTN meds have been advanced
2. For his weight the goal Coreg dose is 50 mg BID (he is more than 85 kg)
3. Trop peak 2.1. No clinical syndrome of AK. EKG is nonspecific. Echo with global hypo and he has a known cardiomyopathy => non-ischemic myocardial injury
4. Neurology OK with Eliquis initiation at this time
5. Pt has reached out to his cousin aerospace medicine physician ... I suggested he get samples of meds from him until he has insurance (social determinant of health)
6. I prefer good BP control and way from acute neurologic event by 3 months prior to elective ischemic eval with stress (less likely direct to cath)
Original Note:
Today's Communication / Plan
-
Diltiazem and nicardipine - discontinued.
Start eliquis 5mg PO BID beginning PM today.
Entresto 49/51 mg
Carvedilol 25mg BID. For weight greater than 85kg, Max recommended dose is 50mg BID.
Impression / Plan
-
Background-
Mr. Rehman is a 43-year-old male with PMHx significant for hypertension, noncompliant with medications presents to the emergency room with shortness of breath, diaphoresis and fatigue x 6 days. Was found to have A-fib with RVR, and a subsequent TIA in
the emergency room. Cardiology consulted for A-fib and cardiomegaly on chest x-ray.
Impression -
Dyspnea -
- Secondary to HFrEF-EF at 40% with global hypokinesis and grade 3 diastolic dysfunction.
- History of established diagnosis of hypertrophic cardiomyopathy, not on any medications.
- Suspect hypertensive cardiomyopathy. Wonder if there is some ischemic component to it as well.
- Medical management with beta-blockers, and Entresto dose bumped.
- Patient started on Farxiga, Case management consult for farxiga coverage.
Acute onset TIA-CVA
- Suspect secondary to A-fib, resolution of symptoms in 4 to 5 hours with tenecteplase.
- Will resume Eliquis when safe to do so from neurological standpoint.
A-fib with RVR-
- Rhythm: Currently in NSR. Stop oral Diltiazem
- [id number] score-4, recommend Eliquis 5 mg twice daily.
- Recommend rate control with carvedilol. Maximum recommended dose of carvedilol for people >85kg is 50mg BID.
Elevated troponins-
- Can be secondary to A-fib and HCOM, type II demand ischemia.
- Questionable NSTEMI, ST segment elevations in V2 V3 with T wave inversions from V3 to V6
-May need left heart catheterization electively.
- Repeat serial EKGs,
Severe systemic hypertension-
Home medications lisinopril and carvedilol, noncompliant.
Recommend optimal medical management and tight blood pressure control.
- Calcium channel blockers are not 1st line in [facility] BP management.
Subjective -
Chest discomfort resolved. Some residual SOB. Feels better than day of admission.
Data reviewed -
Telemetry-average heart rate-80s, NSR
EKG 04/02/24 - NSR, LAE, LVH, Early repolarisation changes in ST segments in V1, V2, ST elevation in V3, QT prolongation
EKG-03/31/2024-A-fib with RVR, early repolarization changes in ST segments
EKG-04/01/2024-NSR, left atrial enlargement, LVH, ST segment elevation in V2, V3, T wave inversions in V3-V6
Troponins-peaked at 2.13, and last troponin - 1.6
proBNP 04/01/2024-720.
CT head-no acute intracranial abnormalities, MRI pending.
Chest r-bcl-elinwxsxzwsi with mild pulmonary vascular congestion.
2D echo-04/01/2024-LVEF 40%, HFrEF, global hypokinesis, grade 3 diastolic dysfunction, PASP-52 mmHg.
Physical Exam
Vital Signs/Labs
Vital Signs
Temp Pulse Resp BP Pulse Ox
98 F 81 16 148/109 97
04/02/24 07:09 04/02/24 07:45 04/02/24 07:30 04/02/24 07:45 04/02/24 07:58
04/01/24 04/02/24 04/03/24
06:59 06:59 06:59
Actual Weight 99.6 kg 97.6 kg
04/02/24 03:59
04/02/24 03:59
PT 14.5 Sec (11.4-14.6) 04/01/24 05:23
INR 1.13 04/01/24 05:23
APTT 33.9 Sec (23.4-35.0) 04/01/24 05:23
Magnesium 2.1 mg/dl (1.6-2.3) 04/02/24 03:59
Triglycerides 105 mg/dl (10-149) 04/01/24 05:23
LDL Cholesterol, Calc 73 mg/dl 04/01/24 05:23
VLDL Cholesterol, Calc 21 mg/dl (0-30) 04/01/24 05:23
HDL Cholesterol 38 mg/dl 04/01/24 05:23
03/31/24 04/01/24
17:16 05:23
Lhc-G-Afjqdqrmgcb Pept 1580 766
LAB Results
03/31/24 03/31/24 03/31/24
15:46 17:16 23:13
Troponin I Cancelled 0.039 H* 0.410 H* D
04/01/24 04/01/24 04/01/24
05:23 11:30 19:38
Troponin I 1.720 H* D 2.130 H* 1.840 H*
04/02/24
03:59
Troponin I 1.640 H*
Physical Exam
Constitutional: Comfortable
Cardiovascular: Rhythm & rate is regular, S1S2 is normal and Other (s4 present)
Respiratory: Lungs clear to auscul., Wheeze Absent, Crackles Absent and Rhonchi Absent
GI: Soft, Distention absent, Non tender and Normal bowel sounds
Neuro/Psych: AO x 3
Data Reviewed
-
Date of Service: April 02, 2024
EKG: Tracing Personally Visualized and interpreted
Labs: Labs Reviewed by me
--- NOTE | 2024-04-02 08:53 | W.PN.HOSP.TC ---
Today's Communication/Plan
-
see bold
Assessment / Plan
Assessment / Plan
Gen: NAD, AAOx3.
Eyes: EOMI, PERRLA, no scleral icterus.
Neck: supple.
CV: RRR, +S1/S2, no m/r/g.
Resp: CTAB, no rales, wheezes, or rhonchi.
Abd: +BS, soft, NT, ND
Skin: No rashes.
Neuro: CN 2-12 intact, non-focal.
Psych: Normal mood and affect.
CT brain: No acute intracranial abnormality.
Echo: Moderately dilated LV.
Mild to moderate LV systolic dysfunction, LVEF 40% with global hypokinesis.
Moderate to severe concentric LVH.
Grade III diastolic dysfunction.
Severe left atrial enlargement.
Mild to moderate mitral regurgitation.
Mild aortic regurgitation.
Estimated PASP 52 mmHg and RA 8 mmHg.
Dilated Sinus of Valsalva-4.3 cm and top normal ascending aorta-3.8 cm.
Acute CVA s/p TNK (03/31/24 @ 1800):
-Unfortunately no CTA brain was completed prior to TNK administration
-neuro following, discussed with neuro
-check MRI/A head/neck
-echo above
-cont Eliquis
Atrial fibrillation RVR:
-was on cardizem gtt, now on Coreg
-cont Eliquis
Essential HTN:
-cont Coreg/Entresto/Aldactone
New HFrEF:
-euvolemic, likely tachycardia induced as global hypokinesis
-cont Coreg/Entresto/Aldactone
-start Jardiance
Other problems:
Elevated troponin due to acute nonischemic myocardial injury
Tobacco abuse disorder: Encourage smoking cessation
FULL/Eliquis
Total time spent on today's encounter was 50 minutes which included time spent in counseling the patient/family regarding diagnosis and treatment plan as listed above, goals of care, and symptom management. Case was discussed with nursing staff,
specialists, and care coordinators/case management. All labs and imaging personally reviewed by me. Remainder the time spent in detailed review of previous records, lab data, imaging, and other medical provider documentation.
Anticipated Discharge: Within 24 hours
Subjective/Interval History
-
Date of Service: April 02, 2024
Objective Data
-
Labs:
Laboratory Results
04/02/24
03:59
WBC 8.9
Hgb 14.6
Hct 42.5
Plt Count 223
Sodium 138
Potassium 3.9
Chloride 106
Carbon Dioxide 26
BUN 20
Creatinine 0.8
Glucose 113 H
Calcium 8.9
Vital Signs:
Vital Signs
Temp Pulse Resp BP Pulse Ox
98 F 81 16 148/109 97
04/02/24 07:09 04/02/24 07:45 04/02/24 07:30 04/02/24 07:45 04/02/24 07:58
I&O
04/01/24 04/02/24 04/03/24
06:59 06:59 06:59
Intake Total 570.0 / 620.0 595 / 595 360 / 360
Output Total 1560 / 1560 150 / 150
Balance 570.0 / 495.0 -965 / -965 210 / 210
--- NOTE | 2024-04-02 10:05 | PTOTSP ---
The patient is independent with ambulation and elevations, no strength or coordination deficits noted. No PT needs identified at this time, will sign off.
--- NOTE | 2024-04-02 10:41 | W.PN.NEURO.1 ---
Documented by User: Glendy Bianchi NP 04/02/24 13:34
Today's Communication / Plan
-
.
Neuro Assessment/Plan
Assessment
This is a 43-year-old male who presented to ER on 03/31/24 with report of 6 days of fatigue and dyspnea. He was found to be in Afib with RVR on arrival. Patient reports that about two hours after arrival he had an abrupt loss of his left-sided
vision. CT head was obtained and was negative for any acute abnormalities. NIHSS was 2 for a left homonymous hemianopia. TNK was administered per protocol on 03/31/24 at 1802. Patient reports significant improvement in his vision in the 4-5 hours
following TNK administration.
-MRI brain 04/02/24: MULTIPLE ACUTE ISCHEMIC INFARCTS (predominantly involving peripheral cortical najera matter) in the right occipital lobe, left occipital lobe, left parietal lobe, and posterior left frontal lobe. Posterior reversible encephalopathy
syndrome (PRES) is a strong diagnostic possibility given the patient's age and history of uncontrolled hypertension. Small to moderate-sized disc herniation at C3/C4 causing mild spinal cord compression and central canal stenosis.
-MRA head/neck 04/02/24: No MRA evidence for internal carotid artery stenosis or occlusion. No MRA evidence for vertebral artery stenosis or occlusion. 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 Moderate tortuosity of the right
intracranial vertebral and basilar arteries.
-TTE 04/01/24: EF 40%. Severe left atrial enlargement.
I. Acute ischemic infarcts in bilateral occipital lobes, left parietal lobe, and posterior left frontal lobe; scattered bilateral infarct appearance supportive of embolic etiology.
II. New diagnosis Afib.
III. C3/C4 disc herniation causing mild spinal cord compression, asymptomatic.
Plan
-Okay to initiate Eliquis 5mg BID per Cardiology today (04/02/24).
-Goal normotension as it is greater than 24 hours from TNK administration.
-LDL goal <70. LDL is 73. Patient refusing statin therapy at this time, reports he will have his LDL followed as an outpatient and reconsider statin therapy if it becomes more elevated.
-Goal normoglycemia, hbA1c is 5.6.
-Smoking cessation counseling ordered.
-PT/OT/ST evaluations.
-NIHSS and neurological checks per unit guidelines.
-Provide patient with a stroke education packet.
-SCDs and OAC for DVT prophylaxis.
-Patient should follow-up with ophthalmology regarding change in vision and driving capability, needs visual field testing. Visual butler are intact on examination, no overt barrier to driving noted.
-Follow-up outpatient regarding asymptomatic cervical spinal cord compression.
-Patient should follow-up with Neurology at least once as an outpatient, he may opt to see a Neurologist closer to home but he can follow with Neurology if he chooses.
Subjective/Objective
Subjective Data
Date of Service: April 02, 2024
No acute events overnight. Patient reports that his vision is 95% back to baseline but still seems slightly blurry at times on the left side of his vision. He denies any headache, dizziness, speech/swallow difficulty, numbness, weakness, chest pain,
palpitations, and shortness of breath.
Objective Data
Vital Signs
Temp Pulse Resp BP Pulse Ox
98 F 81 16 148/109 97
04/02/24 07:09 04/02/24 07:45 04/02/24 07:30 04/02/24 07:45 04/02/24 07:58
Lab Results
04/02/24 03:59
04/02/24 03:59
PT 14.5 Sec (11.4-14.6) 04/01/24 05:23
INR 1.13 04/01/24 05:23
APTT 33.9 Sec (23.4-35.0) 04/01/24 05:23
Sodium 138 mmol/L (135-145) 04/02/24 03:59
Potassium 3.9 mmol/L (3.5-5.1) 04/02/24 03:59
BUN 20 mg/dl (9-20) 04/02/24 03:59
Glucose 113 mg/dl (70-99) H 04/02/24 03:59
Calcium 8.9 mg/dl (8.4-10.2) 04/02/24 03:59
Pzi-F-Orsffkoduiz Pept 766 pg/ml 04/01/24 05:23
LDL Cholesterol, Calc 73 mg/dl 04/01/24 05:23
Patient Allergies
No Known Allergies Allergy (Unverified 03/31/24 15:39)
LDL Level: Patient refused
Review of Systems
-
History Source: Patient
EENT: Blurry Vision; Negative Decreased Vision or Swallowing Difficulty
Respiratory: Negative Cough or Trouble Breathing
Cardiac: Negative Chest Pain or Palpitations
Abdomen/GI: Negative Nausea
Neuro: Negative Dizzy, Headache, Weakness, Numbness, Ataxia, Tremors or Speech Problem
Physical Exam
-
General: Well Developed, Well Nourished and No Apparent Distress
Eyes: No Ptosis and PERRLA
HEENT: Normocephalic and Atraumatic
Neck: Full Range of Motion
Respiratory: No Dyspnea
GI: Non-distended
Extremities: No Clubbing, No Cyanosis and No Edema
Psych: Unremarkable
Extended Neurological Exam
Mood & Affect: Mood Unremarkable and Affect Unremarkable
Attention Span & Concentration: Awake, Alert and Interactive
Memory: Unremarkable (AAOx3) and Able to Recall
Tremor: Hand Tremor Absent and Head Tremor Absent
Involuntary Movement: None
Speech: Quality Unremarkable, Quantity Unremarkable and Rate of Production Unremarkable
Cranial Nerve II: Left Eye: Pupillary Reactivity Unremarkable, Pupillary Size Unremarkable and Visual Butler Intact
Cranial Nerve II: Right Eye: Pupillary Reactivity Unremarkable, Pupillary Size Unremarkable and Visual Butler Intact
Cranial Nerves III, IV, : Extraocular Movement: Extraocular Movement Full in all Directions
Cranial Nerve V: Facial Sensation: Intact to Light Touch
Cranial Nerve VII: Facial Symmetry: Normal Facial Symmetry
Cranial Nerve VIII: Hearing: Unremarkable Hearing to Normal Conversational Volume
Cranial Nerves IX, X: Palate Movement: Palate Elevation Symmetric
Cranial Nerve XI: Shoulder Shrug: Unremarkable
Cranial Nerve XII: Tongue Protusion: Midline
Muscle Strength, Overall: Full Throughout
Muscle Bulk & Tone: Bulk Unremarkable and Tone Unremarkable
Pronator Drift: No Drift in Upper Extremities and No Drift in Lower Extremities
Touch Sensation: Double Simultaneous Stimulation Unremarkable
Coordination: Knuxmy-kqrj-avsgfb Testing Unremarkable
Gait & Station: Up from Seated Without Problem
Modified Long Score (MRS)
-
Modified Long Scale (mRS): No significant disability. Able to carry out usual activities.
Score: 1
Data Reviewed
-
CT Head: Report Reviewed and Image Reviewed
MRI Head: Report Reviewed and Image Reviewed
MRA Head: Report Reviewed and Image Reviewed
MRA Neck: Report Reviewed and Image Reviewed
Echocardiogram: Report Reviewed
Labs: Report Reviewed
Lipid Profile: Report Reviewed
HgbA1C: Report Reviewed
Reviewed with: Physician, Patient and Family
Medications
-
Active Medications
Generic Name Dose Route Start Last Admin
Trade Name Freq PRN Reason Stop Dose Admin
Acetaminophen 650 mg 03/31/24 18:38
Acetaminophen 325 Mg Tablet PO 04/28/24 18:37
Q4HPRN PRN
KILPATRICK, mild pain, or temp >100.4F
Apixaban 5 mg 04/02/24 20:00
Apixaban (Eliquis) 5 Mg Tablet PO 04/30/24 19:59
BID FRANCISCO J
Carvedilol 25 mg 04/02/24 20:00
Carvedilol 25 Mg Tablet PO 04/30/24 19:59
BID FRANCISCO J
Empagliflozin 10 mg 04/02/24 12:15
Empagliflozin (Jardiance) 10 Mg Tablet PO 04/30/24 12:14
DAILY FRANCISCO J
Furosemide 20 mg 04/01/24 12:00 04/02/24 07:45
Furosemide 20 Mg Tablet PO 04/29/24 11:59 20 mg
DAILY FRANCISCO J Administration
Sacubitril/Valsartan 1 tab 04/02/24 20:00
Sacubitril 49 Mg/Valsartan 51 Mg (Entresto) Tab PO 04/30/24 19:59
BID FRANCISCO J
Sodium Chloride 0 flush 03/31/24 23:00
Sodium Chloride 0.9% (Flush) Syringe IV 04/28/24 22:59
PER PROTOCOL FRANCISCO J
Spironolactone 25 mg 04/01/24 12:00 04/02/24 07:45
Spironolactone 25 Mg Tablet PO 04/29/24 11:59 25 mg
DAILY FRANCISCO J Administration
Home Medications
�Medication �Instructions �Recorded
carvedilol 12.5 mg tablet 12.5 mg PO BID Blood Pressure 03/31/24
lisinopril 40 mg tablet 40 mg PO DAILY Blood Pressure 03/31/24
NIH Stroke Score
Subsequent NIH Scale
Date of Subsequent NIH Scale: 04/02/24
Time of Subsequent NIH Scale: 11:00
NIH Stroke Score
Level of Consciousness: 0 - Alert
LOC Questions: 0-Answers both correctly
LOC Commands: 0-Performs both correctly
Best Horizontal Gaze: 0-Normal
Visual Butler: 0=Normal, no visual loss
Facial Palsy: 0=Normal, symmetrical
Motor - Right Arm: 0=No drift 10 seconds
Motor - Left Arm: 0=No drift 10 seconds
Motor - Right Le-No drift 5 seconds
Motor - Left Le-No drift 5 seconds
Limb Ataxia: 0-Absent
Sensation: 0-Normal
Best Language: 0-No aphasia
Dysarthria: 0-Normal
Extinction and Inattention: 0-No abnormality
Total Score:: 0
Modified Martell (mRS) Score
Modified Martell Scale (mRS): No significant disability. Able to carry out usual activities.
Score: 1

Documented by User: Rj Brown MD 04/02/24 14:19
Modified Long Score (MRS)
-
Score: 1
NIH Stroke Score
NIH Stroke Score
Total Score:: 0
Modified Long (mRS) Score
Score: 1
--- NOTE | 2024-04-02 11:34 | PTCARENOTE ---
Pt. transported via wheelchair with this RN to MRI and CT scan; awaiting results. No events on transport and back to bedside @ this time. Stand by assisted back into chair. remains @ bedside. Call loza placed back w in reach.
--- NOTE | 2024-04-02 11:49 | CM ---
Addendum entered by Prasad Jerry 04/02/24 12:35:
Per [employer], pt also needs Entresto and Eliquis.
CM provided pt with free 30 day trial coupons for all three medications: Farxiga, Entresto and Eliquis.
Pt stated his cousin is a data processing supervisor and he will follow up at his office and he will get samples of all three medications till pt has insurance
Original Note:
CM following re: discharge planning.
Reviewed pt's chart, met with pt and pt's spouse at bedside.
CM consult to check the moser for Farxiga 10 mg Daily noted.
Pt has no insurance. On [facility] the moser for Farxiga 10 mg Daily is $566.16. MD and pt with his spouse are aware. Asked [employer] to see whether or not they have samples of Farxiga in their office. Pt and spouse stated they will pay full moser
for a month and they will apply for Medicaid [place] or [employer] [place] insurance. Medical assistance application provided and [employer] [place] insurance info given. Pt stated she has Medicaid insurance and her will definitely qualified.
D/C plan: home with anticipated no needs. Spouse to transport at discharge.
CM will follow with discharge plan updates as needed.
--- NOTE | 2024-04-02 11:53 | CM ---
Please disregard previous note from CM.
CM following re: discharge planning.
Reviewed pt's chart, met with pt and pt's spouse at bedside.
CM consult to check the moser for Eliquis 5mg BID noted.
CM checked the moser with pt's pharmacy. per pharmacist, Eliquis 5mg Daily will cost to the pt $573.73 for 30 day supply. 30 day free coupon for Eliquis with $10.00 monthly coupon provided. Both pt and his spouse are aware of the above, expressed
their appreciation and pt stated he will follow up with his pharmacy.
Pt stated he will follow up with outpatient manager water at [facility] office.
D/C plan: home with follow up with outpatient manager water. Spouse to transport at discharge.
CM will follow with discharge plan updates as hospitalization progresses
[2024-04-02] MEDS: JARDIANCE 10 MG PO (13:21)
--- NOTE | 2024-04-02 17:55 | PHANOTE ---
Patient Education on Cardiotoxicity of Cannabis (Marijuana) and Medication Compliance
Patient was pleasant and eager to learn and improve his health
His significant other was at bedside and was also educated
We discussed recreational cannabis including high dosage inhalation and oral products and provided supporting materials:
- Cannabis elevates heart rate in a dose dependant manner (inhalation more abrupt than oral)
- Cannabis increases myocardial oxygen demand, meaning the heart requires more oxygen to do the same amount of work when cannabis is in the body
- Recreational cannabis increases risk of heart attack
- In patients with h/o AR, continued weekly cannabis use increases risk of
- Discussed how synthetic cannabinoids present greatest risk of cardiac and stroke complications
- Discussed potency, provided perspective on what is high dose and the danger
Patient self-identified experiencing cardiac symptoms incident to cannabis use, but had not realized that until this conversation
Spent time discussing afib and how cannabis' affects on heart rate would increase risk of afib which translates to increase risk of stroke
Patient expressed the desire to protect his brain and heart, and that he was ready for lifestyle modifications. He does not want to have another stroke
Discussed that alcohol is also toxic to the heart and too much alcohol can increase risk of stroke.
Focused on while the risk of cannabis may not seem that profound, given the current stat of his heart, he was at very high risk of its toxic effects.
We discussed medication compliance prior to admission, which patient admits was poor
Focused on the important role of blood pressure medication, heart rate control medication and blood thinner.
We focused on the critical nature of compliance with Eliquis to prevent stroke.
Patient expressed understanding in teach back
Discussed medication compliance techniques.
Pill containers provided
Patient expressed concern about cost of medications. He did confirm case management was helping.
Due to the patients age and lack of medical insurance, provided pharmacy contact information if things changed in the future and he needed help obtaining his medication.
He was informed to absolutely call the pharmacy if he had difficulty obtaining his eliquis, even if it was a couple of months from now
Patient shared that his 9 year old grandson has been hospitalized @ [facility] since early December with 80% tavarez on his body. He said that his grandson is his motivation for being healthy.
Patient asked good questions and paper education was provided.
Mary Marley, 04/02/24 (1+ hour education and compliance session)
[2024-04-02] MEDS: ENTRESTO 49 MG/51 MG 1 TAB PO (19:23)
[2024-04-02] MEDS: ELIQUIS 5 MG PO (19:23)
[2024-04-02] MEDS: COREG 25 MG PO (19:23)
--- NOTE | 2024-04-02 19:30 | PTCARENOTE ---
Rec'd pt resting in bed, NIH 0, has slight left periph blurred vision, SR w/ pac's, + pulses, no edema, skin warm/sry, RA, ,lungs clear, sat 98, + bowel sounds, no bm, abd soft, no n/b, voiding in bathroom, amb in mijares- pedro well
--- NOTE | 2024-04-02 20:10 | PTCARENOTE ---
had short run aflut- rreturned to SR w/ pac's
--- NOTE | 2024-04-02 23:48 | PTCARENOTE ---
sys reviewed, neuro unch
[2024-04-03] VITALS (11 sets, daily range): BP systolic 101–142; BP diastolic 61–82; BMI 29.5
[2024-04-03 04:47] LABS: Blood Urea Nitrogen 22 mg/dl (9-20); Calcium 9.4 mg/dl (8.4-10.2); Carbon Dioxide 24 mmol/L (22-30); Chloride 105 mmol/L (98-107); Estimated Creatinine Clearance > 125 ml/min; Glucose 115 mg/dl (70-99); Potassium 4.1 mmol/L (3.5-5.1); Sodium 138 mmol/L (135-145); eGFR > 60.00
--- NOTE | 2024-04-03 07:36 | W.PN.HOSP.TC ---
Addendum entered and electronically signed by Carter Lino MD 04/03/24 11:41:
Total time spent on d/c = 37 min. This included today's physical exam, progress note, review of laboratory and diagnostic data, preparation of discharge documents and prescriptions, and discussions about the pt's hospital course and discharge plan
with the patient and other medical transcription editor involved in the patient's care.
Original Note:
Today's Communication/Plan
-
will determine timing of discharge with cardiology
Assessment / Plan
Assessment / Plan
Gen: NAD, AAOx3.
Eyes: EOMI, PERRLA, no scleral icterus.
Neck: supple.
CV: tachy, irreg/irreg, +S1/S2, no m/r/g.
Resp: remains CTAB, no rales, wheezes, or rhonchi.
Abd: +BS, soft, NT, ND
Skin: No rashes.
Neuro: remains CN 2-12 intact, non-focal.
Psych: Normal mood and affect.
CT brain: No acute intracranial abnormality.
MRI brain:
1. MULTIPLE ACUTE ISCHEMIC INFARCTS (predominantly involving peripheral cortical najera matter) in the right occipital lobe, left occipital lobe, left parietal lobe, and posterior left frontal lobe. Posterior reversible encephalopathy syndrome
(PRES) is a strong diagnostic possibility given the patient's age and history of uncontrolled hypertension.
2. Small to moderate-sized disc herniation at C3/C4 causing mild spinal cord compression and central canal stenosis.
MRA brain:
1. No MRA evidence for large vessel intracranial arterial stenosis or occlusion.
2. No MRA evidence for intracranial vasculitis.
3. 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
4. Moderate tortuosity of the right vertebral and basilar arteries.
MRA Neck:
1. No MRA evidence for internal carotid artery stenosis or occlusion.
2. No MRA evidence for vertebral artery stenosis or occlusion.
3. 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
4. Moderate tortuosity of the right intracranial vertebral and basilar arteries.
Echo: Moderately dilated LV.
Mild to moderate LV systolic dysfunction, LVEF 40% with global hypokinesis.
Moderate to severe concentric LVH.
Grade III diastolic dysfunction.
Severe left atrial enlargement.
Mild to moderate mitral regurgitation.
Mild aortic regurgitation.
Estimated PASP 52 mmHg and RA 8 mmHg.
Dilated Sinus of Valsalva-4.3 cm and top normal ascending aorta-3.8 cm.
Acute B/L embolic CVAs:
-s/p TNK (03/31/24 @ 1800)
-Unfortunately no CTA brain was completed prior to TNK administration
-neuro following, discussed with neuro
-imaging above
-cont Eliquis
Atrial fibrillation RVR:
-was on cardizem gtt, now on Coreg
-cont Eliquis
Essential HTN:
-cont Coreg/Entresto/Aldactone/Lasix (lowering Coreg and Entresto doses)
New HFrEF:
-euvolemic, likely tachycardia induced as global hypokinesis
-cont Coreg/Entresto/Aldactone/Jardiance
Other problems:
Elevated troponin due to acute nonischemic myocardial injury
Tobacco abuse disorder: Encourage smoking cessation
FULL/Eliquis
Anticipated Discharge: Today
Subjective/Interval History
-
Date of Service: April 03, 2024
'I feel better.'
Objective Data
-
Labs:
Laboratory Results
04/03/24
03:41
Sodium 138
Potassium 4.1
Chloride 105
Carbon Dioxide 24
BUN 22 H
Creatinine 0.7
Glucose 115 H
Calcium 9.4
Vital Signs:
Vital Signs
Temp Pulse Resp BP Pulse Ox
97.9 F 82 18 101/61 96
04/03/24 04:00 04/03/24 05:00 04/03/24 04:00 04/03/24 05:00 04/03/24 04:00
I&O
04/02/24 04/03/24 04/04/24
06:59 06:59 06:59
Intake Total 595 / 595 870 / 870
Output Total 1560 / 1560 150 / 150
Balance -965 / -965 720 / 720
[2024-04-03] MEDS: LASIX 20 MG PO (07:51)
[2024-04-03] MEDS: ELIQUIS 5 MG PO (07:51)
[2024-04-03] MEDS: JARDIANCE 10 MG PO (07:52)
[2024-04-03] MEDS: COREG 25 MG PO (07:53)
[2024-04-03] MEDS: ENTRESTO 49 MG/51 MG 1 TAB PO (07:54)
[2024-04-03] MEDS: ALDACTONE 25 MG PO (07:55)
--- NOTE | 2024-04-03 07:57 | W.PN.UPDATE ---
Addendum entered and electronically signed by Tian Garza MD 04/03/24 08:34:
-
-
He went in back in to AFib on 04/02/2024 at 2244. Rates fine at rest and asleep. Awake after moving around heart rate 90-105. Will leave Coreg at 25 bid. May need to move to Toprol (as outpatient).
I reviewed exterminator helper AFib options: Rhythm control with ablation but that should be deferred at least several months given his STROKE.
-
-
I am OK with hospital discharge. He should see an outpatient analysis specialist within 2-3 weeks. I suggested he obtain a cardiac EKG like a Buzzwirea device or one of the many watches.
Home on current meds. He needs to monitor his BP at least twice weekly for the next several months and exterminator helper at least twice monthly in AM/PM
Original Note:
Update Note
Progress Note Update
-
-
BP a bit too low considering meds just started.
I decreased Coreg and Entresto.
-
-
--- NOTE | 2024-04-03 10:05 | PTCARENOTE ---
recd pt 0715 handoff and neuro check at bedside with offgoing shift. tele level of care, aware of plans for the day, seen by Drs. Lino and Greg. family bedside. some teaching / education about meds, necessity, purpose, monitoring reviewed.
seems receptive and motivated. ate breakfast, ambulating in hallways, no c/o.
--- NOTE | 2024-04-03 10:08 | W.PN.CD ---
Today's Communication / Plan
-
OK for home today on current cardiac meds
He knows to followup with a retail greeting card merchandiser in 1-3 weeks and he says his cousin will see him
I reviewed that AFib will need principal ios developer treatment and that after 3 months a rhythm control approach should be strongly considered
He know the need to monitor BP frequently with new meds
He knows the meds should be increased to goal doses over time
He should be on a statin to get LDL less than 70 although his stroke is almost certainly from AFib unless neurology thinks he has that diagnosis mentioned in the MRI report
He knows to quit smoking
I reviewed signs/symptoms of bleeding on oral anticoagulants
Outpatient stress test in 3 months would be reasonable to followup on his troponin elevation but risk factor modification is already in place/should be in place (pt declined statin)
Heart failure and AFib education has been provided
Cardiology will sign off
Impression / Plan
-
Background:
Mr. Rehman is a 43-year-old male with PMHx significant for hypertension, noncompliant with medications presents to the emergency room with shortness of breath, diaphoresis and fatigue x 6 days. Was found to have A-fib with RVR, and a subsequent TIA in
the emergency room. Cardiology consulted for A-fib and cardiomegaly on chest x-ray.
Impression:
HFrEF, improved
HTN, improved
PAF, back to afib yesterday evening, rate OK for now
Acute stroke, deficits resolved after thrombolytic therapy
Smoker
Non-ischemic myocardial injury
Subjective:
Eager for home
.
Physical Exam
Vital Signs/Labs
Vital Signs
Temp Pulse Resp BP Pulse Ox
98.0 F 104 18 114/75 100
04/03/24 07:53 04/03/24 09:41 04/03/24 04:00 04/03/24 09:41 04/03/24 08:00
04/02/24 04/03/24 04/04/24
06:59 06:59 06:59
Actual Weight 97.6 kg 98.7 kg
04/02/24 03:59
04/03/24 03:41
PT 14.5 Sec (11.4-14.6) 04/01/24 05:23
INR 1.13 04/01/24 05:23
APTT 33.9 Sec (23.4-35.0) 04/01/24 05:23
Magnesium 2.1 mg/dl (1.6-2.3) 04/02/24 03:59
Triglycerides 105 mg/dl (10-149) 04/01/24 05:23
LDL Cholesterol, Calc 73 mg/dl 04/01/24 05:23
VLDL Cholesterol, Calc 21 mg/dl (0-30) 04/01/24 05:23
HDL Cholesterol 38 mg/dl 04/01/24 05:23
03/31/24 04/01/24
17:16 05:23
Rns-G-Hkicnwfrtju Pept 1580 766
LAB Results
03/31/24 03/31/24 03/31/24
15:46 17:16 23:13
Troponin I Cancelled 0.039 H* 0.410 H* D
04/01/24 04/01/24 04/01/24
05:23 11:30 19:38
Troponin I 1.720 H* D 2.130 H* 1.840 H*
04/02/24
03:59
Troponin I 1.640 H*
Physical Exam
Constitutional: No acute distress
EENT: Anicteric
Cardiovascular: Rhythm & rate is regular and Pedal edema is absent
Respiratory: Respiratory effort normal and Lungs clear to auscul.
GI: Soft and Distention absent
Neuro/Psych: AO x 3
Data Reviewed
-
Date of Service: April 03, 2024
--- NOTE | 2024-04-03 13:51 | W.DCSUMMARY ---
Discharge Summary
Discharge Data
Date of Admission: 03/31/24
Date of Discharge: 04/03/24
-
Pending Results: No
Hospital Course
Primary diagnoses:
Acute bilateral embolic cerebrovascular accidents
Atrial fibrillation with rapid ventricular response
New heart failure with reduced ejection fraction
Essential hypertension with hypertensive emergency
Secondary diagnoses:
Elevated troponin due to acute nonischemic myocardial injury
Tobacco abuse disorder
Consultants:
Cardiology
Neurology
Imaging:
CT brain: No acute intracranial abnormality.
MRI brain:
1. MULTIPLE ACUTE ISCHEMIC INFARCTS (predominantly involving peripheral cortical najera matter) in the right occipital lobe, left occipital lobe, left parietal lobe, and posterior left frontal lobe. Posterior reversible encephalopathy syndrome
(PRES) is a strong diagnostic possibility given the patient's age and history of uncontrolled hypertension.
2. Small to moderate-sized disc herniation at C3/C4 causing mild spinal cord compression and central canal stenosis.
MRA brain:
1. No MRA evidence for large vessel intracranial arterial stenosis or occlusion.
2. No MRA evidence for intracranial vasculitis.
3. 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
4. Moderate tortuosity of the right vertebral and basilar arteries.
MRA Neck:
1. No MRA evidence for internal carotid artery stenosis or occlusion.
2. No MRA evidence for vertebral artery stenosis or occlusion.
3. 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
4. Moderate tortuosity of the right intracranial vertebral and basilar arteries.
Echo: Moderately dilated LV.
Mild to moderate LV systolic dysfunction, LVEF 40% with global hypokinesis.
Moderate to severe concentric LVH.
Grade III diastolic dysfunction.
Severe left atrial enlargement.
Mild to moderate mitral regurgitation.
Mild aortic regurgitation.
Estimated PASP 52 mmHg and RA 8 mmHg.
Dilated Sinus of Valsalva-4.3 cm and top normal ascending aorta-3.8 cm.
43-year-old male who presented with shortness of breath as outlined in the H&P done on admission. Hospital course per problem list:
Acute B/L embolic CVAs: Imaging above. The patient received TNK on 03/31/24 @ 1800. Unfortunately no CTA brain was completed prior to TNK administration. Patient had atrial fibrillation and based on his bilateral CVAs for stroke thrombolic and due
to atrial fibrillation. He was seen in consultation by neurology. He was placed on Eliquis.
Atrial fibrillation with RVR: Patient was found to be in atrial fibrillation with a rapid ventricular response on admission. He was placed on a Cardizem drip and then transition to Coreg. He was placed on Eliquis.
Essential HTN: The patient had hypertensive emergency and was briefly on a nicardipine drip. While hospitalized the patient was started on Coreg/Entresto/Aldactone/Lasix.
New HFrEF: Patient was euvolemic. His heart failure with reduced ejection fraction was likely tachycardia induced as he did have global hypokinesis. Echocardiogram above. The patient was initiated on Coreg/Entresto/Aldactone/Jardiance while
hospitalized.
Discharge Plan
-
Patient Disposition: Home (Routine Discharge)
Discharge Diagnosis/Procedures: Acute bilateral embolic cerebrovascular accidents, atrial fibrillation with rapid ventricular response, new heart failure with reduced ejection fraction
Condition: Good
Diet: 2 Gram Sodium and Other diet
Additional Diets: Fluid restrict to 1200 cc/day
Activity: As tolerated
Driving Restrictions: As prior to admission
Blood Work: BMP, magnesium, CBC in 1 week, prescription from PCP
Specialty Instructions: Weigh Daily- Call MD for wt gain/loss 3 lbs overnight/5 lbs in 1 week
Referrals:
Shanna Nunes MD [Active] -
(Sleep apnea testing and treatment as indicated
2 to 3 months)
Eben Bradley DO [Family Provider] - in less than 1 week
Prescriptions:
New
carvedilol 25 mg Tablet
25 mg PO BID Qty: 60 0RF
furosemide 20 mg Tablet
20 mg PO DAILY Qty: 30 0RF
Eliquis 5 mg Tablet
5 mg PO BID Qty: 60 0RF
Jardiance 10 mg Tablet
10 mg PO DAILY Qty: 30 0RF
Entresto 24-26 mg Tablet
1 tab PO BID Qty: 60 0RF
spironolactone [Aldactone] 25 mg tablet
12.5 mg PO DAILY Qty: 15 0RF
Discontinued
carvedilol 12.5 mg Tablet
12.5 mg PO BID
lisinopril 40 mg Tablet
40 mg PO DAILY
Discharge Orders:
Discharge Patient (As Directed); Ordered 04/03/24
Ordered By: Carter Lino
Discharge Date and Time
Print Language: KHMER
--- NOTE | 2024-04-03 14:22 | PTCARENOTE ---
discharged via 1345, to [facility] family vehicle. questions answered, info packets included at discharge, verbalizing re: fluid restrictions.
== END 2024-04-03 13:40 | disposition home or self-care (01) | DRG 61 ==
LOC: ICU 18:46
PROVIDERS: Emergency Medicine; Nurse Practitioner Family; Nurse Practitioner Primary Care; Physician Assistant; ADMITTING PHYSICIAN Hospitalist; ATTENDING PHYSICIAN Internal Medicine; CONSULT PHYSICIAN Internal Medicine Cardiovascular Disease; CONSULT PHYSICIAN Internal Medicine Critical Care Medicine; CONSULT PHYSICIAN Psychiatry & Neurology Neurology; EMERGENCY PHYSICIAN Emergency Medicine; FAMILY PHYSICIAN Family Medicine
PROC: 3E03317 Introduction of Other Thrombolytic into Peripheral Vein, Percutaneous Approach (ICD-10-PCS; 2024-03-31)
DX: I63.40 Cerebral infarction due to embolism of unspecified cerebral artery (principal); I50.21 Acute systolic (congestive) heart failure; I16.1 Hypertensive emergency; I48.92 Unspecified atrial flutter; I5A Non-ischemic myocardial injury (non-traumatic); I43 Cardiomyopathy in diseases classified elsewhere; M50.01 Cervical disc disorder with myelopathy, high cervical region; I48.0 Paroxysmal atrial fibrillation; H53.462 Homonymous bilateral field defects, left side; I11.0 Hypertensive heart disease with heart failure; M48.02 Spinal stenosis, cervical region; R29.702 NIHSS score 2; F17.210 Nicotine dependence, cigarettes, uncomplicated; R00.0 Tachycardia, unspecified; G47.30 Sleep apnea, unspecified; Z91.148 Patient's other noncompliance with medication regimen for other reason; Z59.7 Insufficient social insurance and welfare support
CPT/HCPCS: 70450; 70544; 70548; 70551; 71046; 80048; 80053; 80061; 83036; 83735; 83880; 84484; 85025; 85027; 85610; 85730; 92523; 93005; 93306; 96374; 96375; 97163; 97167; 99291; A9585; J3101